=== PATIENT | female | born 2000 | race Caucasian/White ===

== ENCOUNTER 2018-11-13 09:48 | Emergency (ER) | payer MEDICAID ==
[~2018-11-13] VITALS: Ht 175.3 cm; Wt 59.1 kg
[2018-11-13 09:58] VITALS: BP 136/77; Ht 175.3 cm; Wt 59.1 kg
[2018-11-13] MEDS ORDERED: TORADOL10 MG PO (11:22)
[2018-11-13] MEDS ORDERED: SILVADENE20 GM TP (11:22)
== END 2018-11-13 11:36 | disposition home or self-care (01) ==
LOC: D.ER 09:48
DX: T25.231A Burn of second degree of right toe(s) (nail), initial encounter (principal); X08.8XXA Exposure to other specified smoke, fire and flames, initial encounter; Y93.89 Activity, other specified; Y92.89 Other specified places as the place of occurrence of the external cause